=== PATIENT | female | born 1955 | race Caucasian/White ===

== ENCOUNTER → 2018-01-04 | Outpatient (CLI) | payer BC ==
[2015-08-19 12:34] VITALS: BP 115/65
[~2018-01-04] MED LIST: no home medications
--- NOTE | 2018-01-04 10:34 | RAD ---
Ultrasound evaluation of the abdominal aorta 01/04/2018 Indication: Abdominal aortic aneurysm screening Comparison study: None Discussion: Ultrasound evaluation of the abdominal aorta is seen for purposes of abdominal aortic aneurysm screening. Severe diffuse atherosclerotic vascular disease is noted. Multifocal heavily calcified plaque is seen throughout the abdominal aorta. Some degree of distal aortic stenosis is not excluded. Plaque extending to the common iliac artery is noted. Maximal diameter proximal abdominal aorta: 1.9 cm. Maximal diameter of the mid abdominal aorta: 1.6 cm. Maximal diameter of the distal abdominal aorta: 1.1 cm Impression: 1. No evidence of abdominal aortic aneurysm 2. Multifocal atherosclerotic vascular disease with areas of calcified plaque. Possible narrowing involving the distal aorta noted.. Correlate with clinical symptoms and consider CT angiography if clinically indicated.
== END | disposition home or self-care (01) ==
LOC: US 08:03
PROVIDERS: ATTEND Family Medicine
DX: I70.0 Atherosclerosis of aorta (principal)
CPT/HCPCS: 76770